=== PATIENT | male | born 1960 | race Caucasian/White ===

== ENCOUNTER 2018-08-20 08:30 | Outpatient (CLI) | payer MEDICARE, BC ==
--- NOTE | 2018-08-20 10:45 | CT ---
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 COMPARISON: 05/28/2017 FINDINGS: There is a stable, less than 4 mm, pleural-based nodular density again present at the right lung base . The lung bases are otherwise clear. Lack of intravenous contrast does limit sensitivity for evaluation of the parenchymal organs. There is a hypodense lesion again seen within the medial segment of the left hepatic lobe. This measures 2 7 mm x 13 mm and previously measured 23 mm x 14 mm. The additional lesion within the posterior aspec t dome of the liver is not able to be visualized on this nonenhanced CT scan. The superior pole left renal cyst is again present. The spleen, bilateral adrenal glands, right kidney, and urinary bladder demonstrate a grossly nonenha nced CT appearance. There was a nodular appearance of each adrenal gland on the prior post contraste d study, which is less well appreciated on this nonenhanced exam. No renal or ureteral calculi are s een bilaterally. The opacified bowel is normal in caliber. No enlarged lymph nodes are seen on this nonenhanced CT scan exam by CT size criteria. Vascular calcifications are seen in the abdominal aorta and involving the iliac arteries. There has been interval development of multiple subcutaneous nodules seen within the posterior glutea l fat bilaterally, measuring up to 1.3 cm. No other interval change compared to prior exam. IMPRESSION: 1. Mass within the medial segment of the left hepatic lobe measures slightly larger in sizecompared to the prior examination. 2. Stable tiny pulmonary nodule, posterior right lung base. 3. Stable superior pole left renal cyst. Additional subcentimeter cystic structure in the left kidn ey is less well delineated. 4. Nodular thickening of each adrenal gland on the prior exam, which is less appreciable on this non enhanced exam, but the adrenal glands are overall stable in appearance. 5. No evidence of lymphadenopathy. 6. Stable postoperative changes in the right upper quadrant, with findings likely related to a right hemicolectomy. Loops of small bowel are closely opposed to the inferior aspect of the liver and rig ht lateral abdominal wall. 7. Interval development of multiple small subcutaneous nodules seen within the posterior gluteal delmy pose tissue. The exact etiology for the subcutaneous nodules is uncertain. However, after a discuss ion with Dr. Fleener, the patient is noted to receive regular gluteal injections, which likely attrib utes to the small nodules in the gluteal region. POS: [facility]
== END 2018-08-20 08:31 | disposition home or self-care (01) ==
LOC: SCSCT 08:30
PROVIDERS: ATTEND Internal Medicine Hematology & Oncology
DX: C17.2 Malignant neoplasm of ileum (principal); C7A.020 Malignant carcinoid tumor of the appendix; C78.7 Secondary malignant neoplasm of liver and intrahepatic bile duct; R16.0 Hepatomegaly, not elsewhere classified; R91.1 Solitary pulmonary nodule; N28.1 Cyst of kidney, acquired; E27.8 Other specified disorders of adrenal gland; R22.2 Localized swelling, mass and lump, trunk; Z98.890 Other specified postprocedural states
CPT/HCPCS: 74176

== ENCOUNTER 2018-09-05 09:05 | Outpatient (CLI) | payer MEDICARE, BC ==
--- NOTE | 2018-09-05 11:52 | MRI ---
LUMBAR SPINE MRI WITHOUT IV CONTRAST: History: 58-year-old male with low back pain, M54.5. FINDINGS: There is an approximately 2.7 cm diameter somewhat T2 hyperintense T1 hypointense focus involving the upper aspect of the left kidney, not fully seen or adequately characterized, corresponding to a cyst on prior CT. There are generalized disc desiccation changes and ligament and facet hypertrophic changes. The conus medullaris region terminates at L1. T12-L1, L1-2, L2-3: No evidence for significant canal or lateral recess or foraminal stenosis. There are some minimal type I endplate changes involving the inferior aspects and T12 and L1 vertebral bodi es anteriorly. L3-4: Mild disc bulging without significant associated stenosis. L4-5: Right central protrusion with minimal indention of the ventral thecal sac. Bilateral facet arth rosis with fluid within the facet joints. Small right posterior annular fissure. L5-S1: Diffuse disc bulging with facet arthrosis and facet joint fluid at L5-S1 with a small annular fissure. Moderate bilateral foraminal stenosis. Prominent type I endplate changes are noted at L5-S1. IMPRESSION: Generalized disc desiccation changes and ligament and facet hypertrophic changes. Multiple areas of t ype I endplate changed including L1, L2, and L5-S1. Disc desiccation and degenerative changes and fac et arthrosis changes as above. POS: [facility]
--- NOTE | 2018-09-05 13:24 | MRI ---
MRI CERVICAL SPINE WITH AND WITHOUT CONTRAST: Date: 09/05/18 HISTORY: Low back pain. Cervical spine pain. Previous cervical fusion. COMPARISON: None. TECHNIQUE: Cervical spine MRI is performed without and with intravenous Gadolinium administration. Multisequenti al, multiplanar imaging is performed. FINDINGS: There is an anterior fusion plate with transvertebral body screw at C4, C5, and C6. Associated metall ic susceptibility artifact. Overall, there is appropriate T1 marrow signal intensity of the cervical vertebra from C1-C6. There is no associated enhancement. There is abnormal T1 marrow signal intensity with associated T2 and STIR hyperintensity, as well as e nhancement involving the C7-T1 level. There is loss of disc space height and the aforementioned mensah es are presumed to be due to a Type I Modic change. There is preservation of vertebral body height. 2.7 mm anterolisthesis of C3 upon C4. Visualized brain parenchyma, cervicomedullary junction, cervical cord, and the upper thoracic cord garcía ve a normal size and signal intensity. No pathologic enhancement. C2-C3: No significant disc osteophyte complex. No significant central canal stenosis. Hypertrophic c hanges of the right uncovertebral joint and right facet result in mild to moderate right foraminal na rrowing. Left neural foramen is patent. C3-C4: Broad based disc bulge. Flattening of the ventral thecal sac and obscuration of the ventral s ubarachnoid space. Flattening of the ventral cord. Moderate central canal stenosis. Hypertrophic allred ges of bilateral uncovertebral joints and bilateral facet hypertrophy result in moderate central oralia l stenosis. C4-C5: No significant central canal stenosis. Severe right and mild to moderate left foraminal narro wing. C5-C6: No significant central canal stenosis. Severe right and moderate to severe left foraminal yissel rowing. C6-C7: There is a broad based disc bulge with mild central canal stenosis. Moderate bilateral forami nal narrowing. C7-T1: There is a generalized disc bulge with mild central canal stenosis. Mild bilateral foraminal narrowing. IMPRESSION: 1. Cervical fusion changes as above. 2. Abnormal marrow signal intensity at C7-T1, likely on the basis of Type I Modic change. 3. Varying degrees of central canal stenosis and foraminal narrowing as detailed above. 4. Moderate central canal stenosis at C3-C4. POS: [facility]
== END 2018-09-05 09:06 | disposition home or self-care (01) ==
LOC: MRI 09:05
PROVIDERS: ATTEND Physical Medicine & Rehabilitation
DX: M54.5 Low back pain (principal); Z98.1 Arthrodesis status; M48.02 Spinal stenosis, cervical region; M47.817 Spondylosis without myelopathy or radiculopathy, lumbosacral region
CPT/HCPCS: 72141; 72148; 72156; 72158

== ENCOUNTER 2019-03-25 08:03 | Outpatient (CLI) | payer MEDICARE, BC ==
--- NOTE | 2019-03-25 10:32 | CT ---
LOW DOSE LUNG CANCER SCREENING CT: INDICATION: Current smoker for 45 years with 1-2 packs per day. No current symptoms of shortness of breath or ch est pain. History of appendiceal malignancy with hepatic metastatic disease. COMPARISON: No CT comparisons of the thorax are available. FINDINGS: There is a calcified granuloma in the right lower lobe. There is scattered moderate centrilobular em physema. There are scattered vascular calcifications of the coronary arteries and thoracic aorta. V isualized upper abdomen demonstrates a partially visualized hypodensity within segment 5 of the right hepatic lobe measuring 4 cm suspicious for patient's history of hepatic metastatic disease. This is incompletely characterized on the current study. No definite acute osseous abnormality is evident. IMPRESSION: 1. Lung RADS category 2 - benign. Recommend annual screening CT evaluation. 2. Category S - hypodensity within the right hepatic lobe suspicious for the patient's reported hist ory of hepatic malignancy. 3. Emphysema. POS: [facility]
--- NOTE | 2019-03-25 10:34 | CT ---
CT ABDOMEN WITHOUT IV CONTRAST: INDICATIONS: History of appendiceal malignancy with hepatic metastatic disease. COMPARISON: CT abdomen and pelvis without contrast, dated 08/20/2018. FINDINGS: Lack of IV contrast limits evaluation for metastatic disease within the abdomen. The hypodense mass within the medial right hepatic lobe on image 26 of series 2 is larger, measuring 3.7 x 1.9 cm, where it previously measured 2.7 x 1.3 cm. Fatty liver is stable. Unopacified adrenal glands and pancrea s are unchanged. The left superior pole renal cyst is stable, measuring 4.7 cm. No hydronephrosis i s evident. No free fluid or enlarged lymph nodes are evident. Postoperative change of a right hemic olectomy is stable. Injection granulomata involving the right gluteal region are stable. No acute o sseous abnormality is evident. IMPRESSION: 1. Worsening hepatic metastatic disease. The large hypodense mass within the medial right hepatic l obe is enlarging. 2. Stable fatty liver. 3. Stable left renal cyst. 4. Stable post surgical change of a right hemicolectomy. POS: [facility]
== END 2019-03-25 08:04 | disposition home or self-care (01) ==
LOC: CT 08:03
PROVIDERS: ATTEND Family Medicine
DX: Z00.00 Encounter for general adult medical examination without abnormal findings (principal); Z12.2 Encounter for screening for malignant neoplasm of respiratory organs; F17.210 Nicotine dependence, cigarettes, uncomplicated; C7A.020 Malignant carcinoid tumor of the appendix; C78.7 Secondary malignant neoplasm of liver and intrahepatic bile duct; J43.9 Emphysema, unspecified; K76.0 Fatty (change of) liver, not elsewhere classified; N28.1 Cyst of kidney, acquired; Z98.890 Other specified postprocedural states
CPT/HCPCS: 74150; G0297

== ENCOUNTER 2019-08-13 09:39 | Outpatient (CLI) | payer MEDICARE ==
--- NOTE | 2019-08-13 16:25 | CT ---
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 Secondary malignant neoplasm of liver. COMPARISON: 08/20/2018 11/29/2016 FINDINGS: ABDOMEN: The lung bases are clear of any infiltrative process. Tiny pleural-based 3 mm nodule in the left lung base is stable. The liver shows more pronounced fatty change than it has on the previous exams. The left lobe medial segment liver lesion is stable in size, It measures 3.5 x approximately 2.2 cm, not felt to be signif icantly different. The second liver lesion which is seen more in the dome region of the liver is more difficult to appreciate on this noncontrast study. The spleen and pancreas as well as gallbladder regions appear unremarkable. The right and left adrenal glands and the right and left kidneys are normal in size. A hypodense lesi on involving the upper pole of the left kidney is most compatible with a cyst, stable in size. No sig nificant periaortic or mesenteric adenopathy. There is what appears to have been a right hemicolectom y performed. I do not see any signs of any recurrent tumor mass. No significant adenopathy within the abdomen. PELVIS: No adenopathy, mass or free fluid. Slight bladder wall thickening may be on the basis of some element of bladder outlet obstruction. IMPRESSION: 1. Stable left lobe liver mass. 2. The second smaller liver lesion which was seen on the previous contrast examination is difficult t o even appreciate on today's study. There are more pronounced fatty changes of the liver noted. 3. Stable upper pole left renal cyst. 4. Right hemicolectomy change. No signs of any recurrent mass in this region. POS: [facility]
== END 2019-08-13 09:40 | disposition home or self-care (01) ==
LOC: SCSCT 09:39
PROVIDERS: ATTEND Internal Medicine Hematology & Oncology
DX: C17.2 Malignant neoplasm of ileum (principal); C7A.020 Malignant carcinoid tumor of the appendix; C78.7 Secondary malignant neoplasm of liver and intrahepatic bile duct; R16.0 Hepatomegaly, not elsewhere classified; K76.0 Fatty (change of) liver, not elsewhere classified; N28.1 Cyst of kidney, acquired; Z98.890 Other specified postprocedural states
CPT/HCPCS: 74176

== ENCOUNTER 2020-03-03 09:23 | Outpatient (CLI) | payer MEDICARE ==
--- NOTE | 2020-03-03 10:05 | CT ---
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 Oral contrast was administered. Coronal and sagittal reformats were performed. FINDINGS: This examination is limited for the evaluation of solid organs and vascular structures due to the lac k of intravenous contrast. Lower Chest: within normal limits. Abdomen: Liver: Diffuse fatty infiltration of the liver is seen. There is an oval lesion in the right lower li jenn measuring 4.0 cm in size. This appears to have enlarged compared to the prior examination. There is a questionable 1.2 cm of decreased fatty infiltration of the liver in the far right lobe. Th is is stable and could represent a second mass. Bile Ducts: Normal caliber. Gallbladder: No calcified gallstones. Normal caliber wall. Pancreas: within normal limits. Spleen: within normal limits. Adrenals: within normal limits. Kidneys: 4.6 cm left renal cyst. Pelvis: Reproductive Organs: No pelvic masses. Ureters: within normal limits. Bladder: within normal limits. Bowel: Normal caliber. Mesenteric Lymph Nodes: No enlarged mesenteric lymph nodes. Peritoneum: No ascites or free air, no fluid collection. Vessels: Atherosclerotic calcifications in the aorta Retroperitoneum: within normal limits. Abdominal Wall: within normal limits. Bones: Degenerative changes in the spine. IMPRESSION: 1. Slightly enlarging hypodense hepatic mass 2. Fatty liver 3. Left renal cyst
== END 2020-03-03 09:24 | disposition home or self-care (01) ==
LOC: SCSCT 09:23
PROVIDERS: ATTEND Internal Medicine Hematology & Oncology
DX: C17.2 Malignant neoplasm of ileum (principal); C7A.020 Malignant carcinoid tumor of the appendix; C78.7 Secondary malignant neoplasm of liver and intrahepatic bile duct; K76.0 Fatty (change of) liver, not elsewhere classified; N28.1 Cyst of kidney, acquired; R16.0 Hepatomegaly, not elsewhere classified
CPT/HCPCS: 74176

== ENCOUNTER 2020-03-23 12:26 | Outpatient (CLI) | payer MEDICARE ==
--- NOTE | 2020-03-24 14:49 | NM ---
NUCLEAR MEDICINE TUMOR LOCALIZATION OCTREOSCAN: HISTORY: Malignant neoplasm of ileum. Malignant carcinoid tumor of the appendix. Secondary malignant neoplas m of liver and intrahepatic bile duct. TECHNIQUE: Whole body planar imaging followed SPECT CT of the abdomen was performed following the intravenous ad ministration of 6 mCi Indium-111 labeled Octreotide. FINDINGS: There is increased tracer localization in the 2 cm mass in the posterior segment of the right lobe of the liver close to the dome and the 4 cm mass in the anterior segment of the right lobe. There is physiologic activity in the spleen, kidneys, gallbladder, bowel, and urinary bladder. The r emainder of the exam is otherwise unremarkable. IMPRESSION: Findings are consistent with hepatic metastases. POS: [facility]
== END 2020-03-23 12:27 | disposition home or self-care (01) ==
LOC: NM 12:26
PROVIDERS: ATTEND Internal Medicine Hematology & Oncology
DX: C17.2 Malignant neoplasm of ileum (principal); C7A.020 Malignant carcinoid tumor of the appendix; C78.7 Secondary malignant neoplasm of liver and intrahepatic bile duct
CPT/HCPCS: 78802; 78803; A4641; A9572

== ENCOUNTER 2020-12-03 17:00 | Outpatient (CLI) | payer MEDICARE | END 2020-12-03 17:01 | disposition home or self-care (01) | LOC: SLEEPLAB 17:00 | PROVIDERS: ATTEND Family Medicine | DX: G47.33 Obstructive sleep apnea (adult) (pediatric) (principal); R35.1 Nocturia; I10 Essential (primary) hypertension; G47.00 Insomnia, unspecified; R06.83 Snoring; E66.9 Obesity, unspecified; Z68.33 Body mass index [BMI] 33.0-33.9, adult | CPT/HCPCS: 95806 ==

== ENCOUNTER 2023-01-22 09:33 | Outpatient (CLI) | payer OTHER | END 2023-01-22 09:34 | disposition home or self-care (01) | LOC: SCSMRI 09:33 | PROVIDERS: ATTEND Internal Medicine Hematology & Oncology | DX: C7A.020 Malignant carcinoid tumor of the appendix (principal); C7A.019 Malignant carcinoid tumor of the small intestine, unspecified portion; C78.7 Secondary malignant neoplasm of liver and intrahepatic bile duct | CPT/HCPCS: 74183; 82565 ==

== ENCOUNTER 2023-07-09 09:27 | Outpatient (CLI) | payer OTHER | END 2023-07-09 09:28 | disposition home or self-care (01) | LOC: SCSMRI 09:27 | PROVIDERS: ATTEND Internal Medicine Hematology & Oncology | DX: C7A.020 Malignant carcinoid tumor of the appendix (principal); C7A.019 Malignant carcinoid tumor of the small intestine, unspecified portion; C78.7 Secondary malignant neoplasm of liver and intrahepatic bile duct | CPT/HCPCS: 74183 ==

== ENCOUNTER 2024-09-05 09:45 | Outpatient (CLI) | payer OTHER ==
[2024-09-05 11:18] LABS: #Basophils 0.05 10x3/uL (0.0-0.2); %Basophils 0.9 % (0.0-1.0); %Eosinophils 0.7 % (0.0-10.0); %Lymphocytes 24.2 % (21.0-51.0); %Neutrophils 62.7 % (42.0-75.0); Hematocrit 41.8 % (42.0-52.0); Hemoglobin 14.6 g/dL (14.0-18.0); Mean Corpuscular HGB CONC 34.9 g/dL (32.0-36.0); Mean Corpuscular Hemoglobin 32.1 pg (27.0-31.0); Mean Corpuscular Volume 91.9 fL (78.0-98.0); Mean Platelet Volume 10.2 fL (7.4-10.4); Platelet Count 244 10x3/uL (130-400); RBC Distribution Width 15.6 % (11.5-14.5); Red Blood Cell (RBC) Count 4.55 mill/uL (4.70-6.10)
[2024-09-05 11:35] LABS: Bacteria/HPF None Seen HPF (None Seen); Bilirubin Negative (Negative); Blood, Urine Negative (Negative); Clarity Clear (Clear); Glucose, Urine (Dipstick) Normal (Negative); Ketone, Urine Negative (Negative); Leukocyte Negative Leu/uL (Negative); Nitrite Negative (Negative); Protein, Urine (Dipstick) Negative (Neg-Trace); RBC/HPF 0-3 HPF (0-3); Specific Gravity, Urine 1.014 (1.002-1.036); Squamous Epithelial None Seen HPF (0-3); Urobilinogen Normal mg/dL (Less than 2); WBC/HPF 0-3 HPF (0-3)
[2024-09-05 11:42] LABS: INR-International Normal Ratio 0.9
[2024-09-05 11:43] LABS: PTT 30.7 sec (22.9-36.1)
[2024-09-05 11:45] LABS: ALT (SGPT) 40 U/L (8-55); AST (SGOT) 57 U/L (5-34); Albumin 4.4 g/dL (3.4-4.8); Alkaline Phosphatase 88 U/L (40-110); Anion Gap 14 mmol/L (10-20); BUN (Urea Nitrogen) 6 mg/dL (8.4-25.7); Bilirubin, Total 0.5 mg/dL (0.2-1.2); Calc. Creatinine Clearance 0 mL/min (70-130); Calcium 9.3 mg/dL (7.8-10.44); Carbon Dioxide 26 mmol/L (23-31); Chloride 98 mmol/L (98-107); Estimated GFR 103; Glucose 100 mg/dL (80-115); Protein, Total 7.4 g/dL (5.8-8.1); Sodium 134 mmol/L (136-145)
== END 2024-09-05 09:46 | disposition home or self-care (01) ==
LOC: LABBT 09:45
PROVIDERS: ATTEND Urology
DX: Z01.818 Encounter for other preprocedural examination (principal); R73.03 Prediabetes; Z12.5 Encounter for screening for malignant neoplasm of prostate; N40.1 Benign prostatic hyperplasia with lower urinary tract symptoms; F17.200 Nicotine dependence, unspecified, uncomplicated; I10 Essential (primary) hypertension; R35.1 Nocturia; C7A.020 Malignant carcinoid tumor of the appendix
CPT/HCPCS: 81001; 83036; 85025; 85610; 85730; 86850; 86900; 86901; 87086; 93005; 93010

== ENCOUNTER 2024-09-17 05:55 | Day surgery (SDC) | payer OTHER ==
[2024-09-05 10:07] VITALS: BMI 28.0
[2024-09-17] MEDS ORDERED: LevoFLOXacin D5W 500 mg (100 mL) BAG ONE (07:14)
[2024-09-17] MEDS ORDERED: PROPOFOL 20 ML ONE (07:42)
[2024-09-17] MEDS ORDERED: Lidocaine 2% PF 5 ML VIAL ONE (07:43)
[2024-09-17] MEDS ORDERED: Rocuronium Bromide 10 MG/ML (10ML VIAL) ONE (07:43)
[2024-09-17] MEDS ORDERED: Midazolam HCl 2 mg/2 ml Vial ONE (08:07)
[2024-09-17] MEDS ORDERED: fentaNYL PF 100 MCG/2 ML SYRINGE ONE (08:07)
[2024-09-17] MEDS ORDERED: Ondansetron PF 4 MG/2 ML Vial ONE (08:38)
[2024-09-17] MEDS ORDERED: Dexamethasone 20 MG/5 ML VIAL ONE (08:38)
[2024-09-17] MEDS ORDERED: SUGAMMADEX SODIUM 200 MG/2 ML VIAL ONE (08:43)
[2024-09-17] MEDS ORDERED: Albuterol HFA (OR) 200 PUFF INH ONE ×2 (08:45→09:47)
[2024-09-17] MEDS ORDERED: Labetalol HCl 100 MG/20 ML VIAL ONE (08:55)
[2024-09-17] MEDS ORDERED: HYDROmorphone 2 MG/ML VIAL ONE (09:08)
[2024-09-17] MEDS ORDERED: PROPOFOL 200 MG/20 ML VIAL ONE (09:47)
[2024-09-17] MEDS ORDERED: Mag-Al 1200 mg/1200 mg/30 ML UDCUP PO PRN (10:02)
[2024-09-17] MEDS ORDERED: diphenhydrAMINE 50 MG/ML VIAL IVP PRN (10:02)
[2024-09-17] MEDS ORDERED: Acetaminophen 500 MG TAB PO PRN (10:02)
[2024-09-17] MEDS ORDERED: HYDROcodone/Acetaminophen 10/325 mg Tablet PO PRN (10:04)
[2024-09-17] MEDS ORDERED: fentaNYL 50 mcg/mL 1 mL Vial ONE (11:11)
[2024-09-17 11:13] LABS: Anion Gap 13 mmol/L (10-20); BUN (Urea Nitrogen) 11 mg/dL (8.4-25.7); Calc. Creatinine Clearance 138 mL/min (70-130); Calcium 8.4 mg/dL (7.8-10.44); Carbon Dioxide 22 mmol/L (23-31); Chloride 106 mmol/L (98-107); Estimated GFR 105; Glucose 130 mg/dL (80-115); Sodium 137 mmol/L (136-145)
[2024-09-17 12:18] LABS: #Basophils 0.03 10x3/uL (0.0-0.2); #Eosinophils Less than 0.03 10x3/uL (0.0-0.7); %Basophils 0.4 % (0.0-1.0); %Eosinophils 0.1 % (0.0-10.0); %Lymphocytes 7.8 % (21.0-51.0); %Monocytes 2.9 % (0.0-10.0); %Neutrophils 88.5 % (42.0-75.0); Hematocrit 38.5 % (42.0-52.0); Hemoglobin 13.6 g/dL (14.0-18.0); Mean Corpuscular HGB CONC 35.3 g/dL (32.0-36.0); Mean Corpuscular Hemoglobin 32.5 pg (27.0-31.0); Mean Corpuscular Volume 92.1 fL (78.0-98.0); Platelet Count 198 10x3/uL (130-400); RBC Distribution Width 15.6 % (11.5-14.5); Red Blood Cell (RBC) Count 4.18 mill/uL (4.70-6.10)
[2024-09-17] MEDS: Sodium Chloride 0.9% 1,000 ML IV SCH (13:07)
[2024-09-17] MEDS: tiZANidine HCl 4 MG TAB PO SCH (13:39)
[2024-09-17] MEDS: Oxybutynin 5 MG TAB PO PRN (13:39)
[2024-09-17] MEDS: HYDROcodone/Acetaminophen 7.5/325 mg Tablet PO PRN (14:57)
[2024-09-17] MEDS: Docusate 100 MG CAP PO SCH (20:25)
[2024-09-17] MEDS: Zolpidem Tartrate 5 MG TAB PO PRN (20:25)
[2024-09-17] MEDS: HYDROcodone/Acetaminophen 10/325 mg Tablet PO PRN (20:25)
[2024-09-17] MEDS: Simvastatin 10 MG TAB PO SCH (20:25)
[2024-09-18] MEDS: LevoFLOXacin 500 mg/D5W 500 MG in Premix 1 BAG IVPB SCH (05:22)
[2024-09-18 06:18] LABS: #Basophils Less than 0.03 10x3/uL (0.0-0.2); #Eosinophils Less than 0.03 10x3/uL (0.0-0.7); %Basophils 0.2 % (0.0-1.0); %Eosinophils 0.1 % (0.0-10.0); %Lymphocytes 18.6 % (21.0-51.0); %Monocytes 12.9 % (0.0-10.0); %Neutrophils 67.8 % (42.0-75.0); Hematocrit 34.3 % (42.0-52.0); Hemoglobin 11.9 g/dL (14.0-18.0); Mean Corpuscular HGB CONC 34.7 g/dL (32.0-36.0); Mean Corpuscular Hemoglobin 31.8 pg (27.0-31.0); Mean Corpuscular Volume 91.7 fL (78.0-98.0); Mean Platelet Volume 10.7 fL (7.4-10.4); Platelet Count 188 10x3/uL (130-400); RBC Distribution Width 15.7 % (11.5-14.5); Red Blood Cell (RBC) Count 3.74 mill/uL (4.70-6.10)
[2024-09-18 06:28] LABS: Anion Gap 12 mmol/L (10-20); BUN (Urea Nitrogen) 11 mg/dL (8.4-25.7); Calc. Creatinine Clearance 149 mL/min (70-130); Calcium 8.4 mg/dL (7.8-10.44); Carbon Dioxide 22 mmol/L (23-31); Chloride 105 mmol/L (98-107); Estimated GFR 107; Glucose 112 mg/dL (80-115); Potassium 3.3 mmol/L (3.5-5.1); Sodium 136 mmol/L (136-145)
[2024-09-18] MEDS: Terazosin HCl 1 MG CAP PO SCH (08:34)
[2024-09-18] MEDS: Pantoprazole 40 MG DR.TAB PO SCH (08:35)
[2024-09-18] MEDS: Amlodipine 10 MG TAB PO SCH (08:35)
[2024-09-18] MEDS: Lisinopril 20 MG TAB PO SCH (08:36)
[2024-09-18 08:37] VITALS: BP 151/82
[2024-09-18 08:43] VITALS: TEMP 98.2
== END 2024-09-18 09:11 | disposition home or self-care (01) ==
LOC: SDC 05:55 → SURG B 10:06 → SDC 09-18 09:11
PROVIDERS: ATTEND Urology
PROC: 0VT08ZZ Resection of Prostate, Via Natural or Artificial Opening Endoscopic (ICD-10-PCS; principal; 2024-09-17)
DX: N40.1 Benign prostatic hyperplasia with lower urinary tract symptoms (principal); R39.14 Feeling of incomplete bladder emptying; I10 Essential (primary) hypertension; K21.9 Gastro-esophageal reflux disease without esophagitis; E78.5 Hyperlipidemia, unspecified; F17.200 Nicotine dependence, unspecified, uncomplicated; Z90.49 Acquired absence of other specified parts of digestive tract; Z88.0 Allergy status to penicillin; Z79.82 Long term (current) use of aspirin
CPT/HCPCS: 52601; 80048; 85025; 86850; 86900; 86901; A4333; J1100; J1171; J1956 ×2; J2250; J2405; J2704; J3010; 36415; 88305